=== PATIENT | male | born 1950 | race Caucasian/White ===

== ENCOUNTER → 2025-01-04 11:59 | Outpatient (REF) | payer OTHER, SELFPAY | LOC: HWRCS 11:59 | PROVIDERS: ATTENDING PHYSICIAN Internal Medicine Cardiovascular Disease | DX: R06.02 Shortness of breath (principal) | CPT/HCPCS: 78452; 93017; A9500; J2785 ==

== ENCOUNTER → 2025-01-14 13:00 | Outpatient (REF) | payer OTHER, SELFPAY | LOC: HWRCS 13:00 | PROVIDERS: ATTENDING PHYSICIAN Internal Medicine Cardiovascular Disease | DX: I77.810 Thoracic aortic ectasia (principal) | CPT/HCPCS: 93306 ==

== ENCOUNTER → 2025-01-26 12:31 | Outpatient (REF) | payer OTHER, SELFPAY ==
[2025-01-26 13:09] LABS: Hematocrit 42.5 % (39.0-52.0); Hemoglobin 14.7 g/dL (13.0-18.0); Mean Corp Hgb Conc. 34.6 g/dL (33.0-37.0); Mean Corpuscular Volume 90.6 fL (80.0-94.0); Nucleated Red Blood Cells % 0 % (-); Platelet Count 211 10^3/uL (130-400); Red Cell Dist. Width 12.7 % (11.5-14.5)
[2025-01-26 15:51] LABS: Blood Urea Nitrogen 30 mg/dl (9-20); Calcium 9.6 mg/dl (8.4-10.2); Carbon Dioxide 28 mmol/L (22-30); Chloride 102 mmol/L (98-107); Glucose 101 mg/dl (70-99); Potassium 4.2 mmol/L (3.5-5.1); Sodium 137 mmol/L (135-145); eGFR 44.65
== END ==
LOC: RCS 12:31
PROVIDERS: ATTENDING PHYSICIAN Orthopaedic Surgery; FAMILY PHYSICIAN Student in an Organized Health Care Education/Training Program
DX: Z01.818 Encounter for other preprocedural examination (principal)
CPT/HCPCS: 36415; 80048; 85025; 93005

== ENCOUNTER 2025-02-07 23:06 | Observation (INO) | payer OTHER, SELFPAY ==
[2025-02-07] VITALS (11 sets, daily range): BP systolic 142–213; BP diastolic 74–118
[2025-02-07 19:28] LABS: Hematocrit 40.9 % (39.0-52.0); Hemoglobin 14.4 g/dL (13.0-18.0); Mean Corp Hgb Conc. 35.2 g/dL (33.0-37.0); Mean Corpuscular Volume 86.8 fL (80.0-94.0); Nucleated Red Blood Cells % 0 % (-); Platelet Count 204 10^3/uL (130-400); Red Cell Dist. Width 12.6 % (11.5-14.5)
--- NOTE | 2025-02-07 19:29 | ED.CVA ---
History of Present Illness
General
Chief Complaint: CVA/TIA Symptoms
Source: patient and ambulance crew
Time Seen by Provider: 02/07/25 19:27
Onset of Stroke Symptoms
Onset of symptoms known: Yes
Date of onset of symptoms: 02/07/25
Time of onset of symptoms: 18:30
History of Present Illness
History of Present Illness:
74-year-old male presents to the emergency room by ambulance due to right-sided paresthesias. Patient states that he had a onset of paresthesias while he was sitting eating dinner. He got up to try to 'walk it off'. Symptoms lasted for about 10
minutes and then quickly resolved. He denies associated weakness, difficulty speaking, word finding issues. He did have a headache which started shortly after paresthesias. This headache has improved significantly and is almost gone at this
point. Patient was found to be hypertensive by medics at was hypertensive on arrival. Patient states he does not take medication for high blood pressure. He has had high measurements when in doctors offices but after they let him rest for a
little while the blood pressure typically normalizes. Patient had surgery of his left hand to repair a fracture. He had been taking Eliquis due to A-fib. He had stopped the Eliquis about a week ago. He does not believe he has been in A-fib at
all recently.
Phy Exam
Physical Exam
Physical Exam:
General: Awake, Alert, Oriented X3. No acute distress.
Vitals: Hypertensive
Head: Atraumatic
Eyes: Pupils equal, EOMI
Throat: Airway intact, no exudates
Neck: Trachea midline
Lungs: Clear and equal b/l
Heart: Regular rate, no murmurs
Neuro: Cranial nerves intact, muscle strength equal bilaterally, cerebellar exam normal
Skin: Warm, dry, no rash
Extremities: pulses equal b/l, no edema. Cast in place left forearm/hand.
NIH Stroke Score
Level of Consciousness: 0 - Alert
LOC questions: 0-Answers both correctly
LOC Commands: 0-Performs both correctly
Best Gaze: 0-Normal
Visual Segura: 0=Normal, no visual loss
Facial palsy: 0=Normal, symmetrical
Motor - Right Arm: 0=No drift 10 seconds
Motor - Left Arm: 0=No drift 10 seconds
Motor - Right Le-No drift 5 seconds
Motor - Left Le-No drift 5 seconds
Limb Ataxia: 0-Absent
Sensation: 0-Normal
Best Language: 0-No aphasia
Dysarthria: 0-Normal
Extinction and Inattention: 0-No abnormality
Total Score:: 0
Course
Orders/Labs/Results
Orders:
Orders
02/07/25 19:18
Basic Metabolic Panel Urgent
Complete Blood Count/With Diff Urgent
02/07/25 19:19
EKG [Electrocardiogram (*1)] Urgent
Reason for Study: Fatigue / Weakness
EKG- Treatment ONCE
02/07/25 19:28
CT Head W/o Iv Contrast Urgent
Comment:
Reason For Exam: headache, r sided paresthesia
02/07/25 22:37
Aspirin Chewable [Low Strength Aspirin] 324 mg PO NOW STA
02/07/25 22:56
Admit/Transfer Patient As Directed
Co-Sign Provider:
Level of Care: Observation services
Assign to:: Telemetry
Physician / Group: John
Diagnosis: CVA / TIA
Reason for Telemetry: CVA/TIA
Date to Stop Telemetry: 02/10/25
Time to Stop Telemetry: 11:00
PRN Pain Medication Management As Directed
May give lesser potent ordered pain med per pt: Yes
preference::
Protocol:: Medication orders for pain may be administered in a
manner that supports deferring to patient preference
when the pt is:
- Requesting an ordered lesser potent pain medication.
Least to most potent pain medications are defined
as: acetaminophen < NSAID < tramadol < opioids
(morphine, oxycodone, hydromorphone).
- Requesting a lesser dose of the same medication IF
ORDERED.
- Requesting a less intrusive route of administration
if both routes are prescribed by the provider (PO <
IV).
02/07/25 22:57
Code Status As Directed
Resuscitation Status: Full Code
02/10/25 11:00
DC Protocol for Telemetry ONCE
Abnormal Lab Results
02/07/25
19:18
MPV 10.6 H fL
(7.4-10.4)
Absolute Monos (auto) 0.7 H 10^3/uL
(0.1-0.6)
Monocytes % 10.3 H %
(1.7-9.3)
BUN 22 H mg/dl
(9-20)
Creatinine 1.5 H mg/dL
(0.7-1.3)
02/07/25 19:18
02/07/25 19:18
Vital Signs
Initial and Last Documented VS:
Initial Vital Signs
Temp Pulse Resp BP Pulse Ox
98.3 F 74 14 213/112 96
02/07/25 19:18 02/07/25 19:18 02/07/25 19:18 02/07/25 19:18 02/07/25 19:18
Last Documented Vital Signs
Temp Pulse Resp BP Pulse Ox
98.3 F 56 11 169/79 92
02/07/25 19:18 02/07/25 22:15 02/07/25 22:15 02/07/25 22:15 02/07/25 22:15
MDM/Problems Addressed
Differential Diagnosis Includes:
TIA, CVA, seizure
MDM/Problems Addressed:
Patient presents with right sided paresthesias that have resolved. CT shows no acute abnormality. Patient was quite hypertensive on arrival but his blood pressure has moderated. Suspect TIA. 4 baby aspirin given. Will admit for further stroke
workup.
*Radiology
Radiology exam reviewed: radiology read reviewed
*Pulse Oximetry
SaO2: 97
Oxygen Mode of Delivery: Room air
Patient hypoxic: no
*EKG
Interpreted by ED Provider?: Yes
Heart Rate: 82
Rate: normal
Rhythm: sinus
[place]: normal axis
Interval: normal interval
QRS Pattern: normal QRS
Ischemia: non-specific ST changes
*Avionics System Engineer Interpretation
Rate: normal
Interpretation: normal
Rhythm: sinus
*Critical Care Note
Total Time (30-74mins, 75-104mins- exclusive of procedures): Not Applicable
ED Attending Note
-
Portions of this chart may have been created with voice recognition software.� Occasional wrong word or��sound alike� substitutions may have occurred due to the inherent limitations of voice recognition software.
Discharge Plan
Departure
Patient Disposition: Admit
Date of Disposition: 02/07/25
Time of Disposition: 22:26
Admit to: Telemetry
Presentation/result/management discussed w/ accepting MD/DO: Hospitalist
Condition: Fair
Discharge Problem:
Brain TIA
Interventions
Interventions:
*General Assessment Last Done: 02/07/25 19:24
*Neglect/Abuse Screening Last Done: 02/07/25 19:16
*ED COVID-19 Vaccine History Last Done: 02/07/25 19:24
*ED Influenza Vaccine History Last Done: 02/07/25 19:24
[facility] Fall Risk Assessment Tool Last Done: 02/07/25 19:23
*Risk Screen - Suicide (C-SSRS) Last Done: 02/07/25 19:16
ED- Cardiac Assessment Last Done: 02/07/25 19:20
ED- Neurological Assessment Last Done: 02/07/25 19:20
ED- Pulmonary Assessment Last Done: 02/07/25 19:20
ED Swallowing Screen Last Done: 02/07/25 19:30
[2025-02-07 19:52] LABS: Blood Urea Nitrogen 22 mg/dl (9-20); Calcium 9.3 mg/dl (8.4-10.2); Carbon Dioxide 23 mmol/L (22-30); Chloride 105 mmol/L (98-107); Glucose 98 mg/dl (70-99); Sodium 135 mmol/L (135-145); eGFR 48.25
[2025-02-07] MEDS: LOW STRENGTH ASPIRIN 324 MG PO (22:40)
--- NOTE | 2025-02-07 23:05 | HPS.HSE ---
Family Physician
-
Family Physician: Tom Nelson MD
Chief Complaint
-
Right sided numbness
History of Present Illness
Patient is a 74y M with PMH significant for paroxysmal A-Fib who presents to ED complaining of numbness and tingling of the R side that started this evening. Patient states that symptoms started around 6:30PM. He noted a tingling sensation in
his R arm and leg. He stood to 'walk it off' and felt somewhat lightheaded. He did not fall. He denies any headache or vision change. He denies any weakness of the limbs or unsteady gait.
Patient called 911 and presented to the ED for evaluation.
In the ED, patient complains of a 'heaviness' all over. He denies any other current / focal symptoms.
He denies any prior h/o CVA / TIA.
Patient recently underwent ORIF of the L hand (02/02). He held his Eliquis starting Friday (last dose Tuesday 01/30). He had planned to resume this after surgery, but went home with friends instead of to his home and did not have his medications.
Medical History
Past Medical History
Past Medical History: Reports Other
Additional Past Medical History:
Paroxysmal Atrial Fibrillation
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
BPH
CKD III
Past Surgical History: Reports Other
Additional Past Surgical History:
T&A
Cervical LN Excision
PVI Ablation x 2
DCCV (most recent July 2024)
TURP
Social History
Tobacco: Non-smoker
Alcohol: Occasional
Drug: None
Family History
Family History: Not pertinent
Allergies / Home Medications
Allergies reflects when Allergies were last updated in [employer].
Home Medications with original date entered in [employer]
Allergy/Medication List:
Allergies
Allergy/AdvReac Type Severity Reaction Status Date / Time
No Known Allergies Allergy Verified 02/07/25 19:16
Home Medications
apixaban 5 mg tablet (Eliquis) 5 mg PO BID 02/07/25
Review of Systems
-
History Source: Patient
A 12 point ROS was completed and negative except as noted: Yes
Constitutional: Reports Fatigue; Denies Fever or Chills
Respiratory: Denies Cough or Trouble Breathing
Cardiac: Denies Chest Pain or Palpitations
Abdomen/GI: Denies Abdominal Pain, Nausea, Vomiting or Diarrhea
: Denies Dysuria or Frequency
Musculoskeletal: Denies Joint Pain or Edema
Neurological: Reports Dizzy and Numbness; Denies Headache or Weakness
Psych: Denies Depression or Anxiety
Physical Exam
Vital Signs
Vital Signs
Temp Pulse Resp BP Pulse Ox
98.3 F 56 11 169/79 92
02/07/25 19:18 02/07/25 22:15 02/07/25 22:15 02/07/25 22:15 02/07/25 22:15
Physical Exam
General: Other (74y M in no acute distress.)
HEENT: Moist mucous membranes and PERRLA
Respiratory: Clear; No Wheezes, Rales or Rhonchi
Cardiac: S1/S2 and Regular Rhythm; No Murmur
GI: Soft, Non Tender, Non Distended and Normal Bowel Sounds
Musculoskeletal: No Clubbing, No Cyanosis, No Edema and Other (L forearm / hand in bulky dressing / cast.)
Neuro: AO x 3 and Nonfocal/grossly intact
Laboratory Results
-
02/07/25 19:18
02/07/25 19:18
Laboratory Results
Total Bilirubin Cancelled 02/07/25 19:18
AST Cancelled 02/07/25 19:18
ALT Cancelled 02/07/25 19:18
Alkaline Phosphatase Cancelled 02/07/25 19:18
Impression/Plan
-
A/P: Patient is a 74y M with PMH significant for A-Fib who presents to ED complaining of R sided paresthesias that started this evening.
CVA / TIA
- Observe overnight for further evaluation and treatment.
- NIH = [address] head unremarkable.
- BP elevated in the ED - allow permissive hypertension for now.
- Follow neurologic exam for any changes / recurrent symptoms.
- MRI in AM.
- Neuro evaluation.
- PT / OT evaluations.
- Check lipid panel, A1C, etc.
- ASA daily and continue / resume Eliquis.
- Follow BP and add antihypertensive medication if needed for goal of normotension at discharge.
- Had Echo (01/14) which was unremarkable.
Paroxysmal Atrial Fibrillation
- In NSR at present. Monitor on telemetry overnight.
- s/p PVI x 2 and multiple DCCV (most recent July 2024).
- Resume Eliquis as noted above (off for the past week due to surgery).
Left Hand Fracture
- s/p ORIF on 02/02.
- Cast in place.
- Follow-up with Ortho as planned.
BPH
- Bladder scan protocol.
DVT Prophylaxis: On Eliquis
Code Status: Full
[2025-02-08] VITALS (13 sets, daily range): BP systolic 122–203; BP diastolic 59–106; PULSE 57–64; O2SAT 96; BMI 28.6
[2025-02-08 07:00] LABS: Blood Urea Nitrogen 20 mg/dl (9-20); Calcium 9.1 mg/dl (8.4-10.2); Carbon Dioxide 22 mmol/L (22-30); Chloride 108 mmol/L (98-107); Glucose 104 mg/dl (70-99); HDL Cholesterol 40 mg/dl; LDL Cholesterol, Calculated 122 mg/dl; Potassium 4.0 mmol/L (3.5-5.1); Sodium 136 mmol/L (135-145); Very Low Density Lipoprotein 12 mg/dl (0-30); eGFR 52.41
[2025-02-08 07:02] LABS: Hematocrit 38.5 % (39.0-52.0); Hemoglobin 13.5 g/dL (13.0-18.0); Mean Corp Hgb Conc. 35.1 g/dL (33.0-37.0); Mean Corpuscular Volume 87.5 fL (80.0-94.0); Platelet Count 191 10^3/uL (130-400); Red Cell Dist. Width 12.6 % (11.5-14.5)
--- NOTE | 2025-02-08 08:05 | CON.NEURO ---
Addendum entered and electronically signed by Sanford Castaneda MD 02/08/25 12:58:
Studies reviewed.
I have personally examined the patient. I reviewed and agree with the DISCOVERY MANAGER's Note.
My addenda:
Awake, alert, interactive. No acute distress.
Speech intact.
Follows 2-step requests w/o difficulty. No tremor.
Extra-ocular movements grossly intact.
Facial movements full and symmetric. Hearing intact to normal conversational volume.
Normal UE movements bilaterally.
Neck: full ROM.
Chest: no dyspnea
Heart: no JVD
Ext: (-) Clubbing, (-) Cyanosis, (-) Edema
IMPRESSIONS/RECOMMENDATIONS:
Abrupt onset of right sided hemibody changes which is most likely secondary to hypertensive encephalopathy. Differential diagnosis includes TIA or metabolic disturbance. Distant possibility is migraine with aura
Check CTA head and neck to determine if there is critical stenosis producing symptoms
Goal of normotension
Continue apixaban
Start atorvastatin 80 mg due to LDL greater than 70
Rehabilitation evaluations and treatment
D/W patient
All questions answered.
Will continue to follow pending results.
Original Note:
Documented by User: Korin Lopez NP 02/08/25 10:18
Neuro Assessment/Plan
Assessment
Patient is a 74 year old male with past medical history significant for paroxysmal A-Fib on Eliquis who presents to [facility] on 02/07/2025 complaining of right sided sensory changes.
Labs: LDL 122, hgb A1C 5.5, CRP<5, TSH 2.[address] 02/07/2025: No evidence of acute intracranial abnormality.
Head/neck CTA 02/08/2025: pending
Plan
Impression: abrupt onset of right sided sensory changes, differentials include TIA/CVA vs hypertension encephalopathy considering BP profoundly elevated vs migraine
-check MRI brain without contrast to evaluate for stroke
-goal normotension
-continue Eliquis
-goal LDL <70, current LDL 122 start atorvastatin 80 mg nightly
-PT/OT/ST evaluations
-continue neurochecks and NIHSS per unit guidelines
-stroke education packet
All questions encouraged and answered, plan of care discussed with Dr. Castaneda and patient
Consultation
Order
Date of Consultation: 02/08/25
Requesting Provider: hospitalist/ Dr. Parvez Lopez
Reason for Consult: right sided sensation changes
Subjective/Objective
Subjective Data
Date of Service: February 08, 2025
Patient is a 74 year old male with past medical history significant for paroxysmal A-Fib on Eliquis who presents to [facility] on 02/07/2025 complaining of right sided sensory changes. Patient states that symptoms started around 6:30PM. He noted a
tingling sensation in his right arm and leg. He stood to 'walk it off' and felt somewhat lightheaded. He did not fall. He denies any issues with vision, speech or swallow. He denies any weakness of the limbs or unsteady gait. Patient called 911
and presented to the ED for evaluation. In the ED, patient complained of a 'heaviness' all over and transient headache in the right presybeterian. He denies any other focal symptoms. He denies any prior h/o CVA / TIA. Denies recent travel. Patient
recently underwent ORIF of the left hand on Friday (02/02). He states he fractured his hand while carrying a laundry basket down the stairs and fell. He held his Eliquis starting Friday, 8 days ago (last dose Tuesday 01/30). He had planned to
resume this after surgery, but went home with friends instead of to his home and did not have his medications. In ED NIHSS 0 and therefore not a TNK candidate. Head CT showed no evidence of acute intracranial abnormality. Blood pressure was 213/112.
Objective Data
Vital Signs
Temp Pulse Resp BP Pulse Ox
97.9 F 54 16 174/92 92
02/08/25 06:30 02/08/25 02:30 02/08/25 02:30 02/08/25 01:06 02/08/25 02:30
Lab Results
02/08/25 06:31
02/08/25 06:31
Sodium 136 mmol/L (135-145) 02/08/25 06:31
Potassium 4.0 mmol/L (3.5-5.1) 02/08/25 06:31
BUN 20 mg/dl (9-20) 02/08/25 06:31
Glucose 104 mg/dl (70-99) H 02/08/25 06:31
Calcium 9.1 mg/dl (8.4-10.2) 02/08/25 06:31
LDL Cholesterol, Calc 122 mg/dl 02/08/25 06:31
Patient Allergies
No Known Allergies Allergy (Verified 02/07/25 19:16)
CVA Assessment
Onset of Stroke Symptoms
Onset of symptoms known: Yes
Date of onset of symptoms: 02/07/25
Time of onset of symptoms: 18:30
Time pt last seen normal is known: No
Date last time pt seen normal: 02/07/25
Time last time pt seen normal: 18:30
NIH Stroke Score
Level of Consciousness: 0 - Alert
LOC Questions: 0-Answers both correctly
LOC Commands: 0-Performs both correctly
Best Horizontal Gaze: 0-Normal
Visual Segura: 0=Normal, no visual loss
Facial Palsy: 0=Normal, symmetrical
Motor - Right Arm: 0=No drift 10 seconds
Motor - Left Arm: 0=No drift 10 seconds
Motor - Right Le-No drift 5 seconds
Motor - Left Le-No drift 5 seconds
Limb Ataxia: 0-Absent
Sensation: 0-Normal
Best Language: 0-No aphasia
Dysarthria: 0-Normal
Extinction and Inattention: 0-No abnormality
NIH Total Score:: 0
Tenecteplase Contraindications
Inclusion and Exclusion criteria reviewed: Yes
IAT Contraindications: NIHSS < 6
Modified Laurens Score (MRS)
-
Modified [place]rens Scale (mRS): No symptoms
Score: 0
Physical Exam
-
General: Comfortable and Appears Stated Age
HEENT: Normocephalic, Atraumatic and Anicteric
Neck: Full Range of Motion
Respiratory: No Dyspnea
Cardiac: No JVD
GI: Non-distended
Skin: Unremarkable
Extremities: No Clubbing, No Cyanosis, No Edema and Other (cast to LUE)
Psych: Unremarkable
Extended Neurological Exam
Mood & Affect: Mood Unremarkable
Attention Span & Concentration: Awake, Alert, Interactive and No Difficulty with 2 Step Request
Memory: Unremarkable
Involuntary Movement: None
Speech: Quality Unremarkable, Quantity Unremarkable and Rate of Production Unremarkable
Cranial Nerve II: Left Eye: Visual Segura Intact
Cranial Nerve II: Right Eye: Visual Segura Intact
Cranial Nerves III, IV, : Extraocular Movement: Extraocular Movement Full in all Directions
Cranial Nerve VII: Facial Symmetry: Normal Facial Symmetry
Cranial Nerve VIII: Hearing: Unremarkable Hearing to Normal Conversational Volume
Muscle Strength, Overall: Full Throughout
Pronator Drift: No Drift in Upper Extremities and No Drift in Lower Extremities
Coordination: Pwrxch-[id number]-[id number] Testing Unremarkable
Data Reviewed
-
CT-A: Ordered
CT Head: Report Reviewed and Image Reviewed
MRI Head: Ordered
Medical Test Reports: Report Reviewed
Labs: Report Reviewed
Lipid Profile: Report Reviewed
HgbA1C: Report Reviewed
Reviewed with: Physician and Patient
Old Records: Summarized
Medications
-
Active Medications
Generic Name Dose Route Start Last Admin
Trade Name Freq PRN Reason Stop Dose Admin
Acetaminophen 650 mg 02/08/25 00:32
Acetaminophen 325 Mg Tablet PO 03/08/25 00:31
Q4HPRN PRN
Mild Pain / Temp > 101
Apixaban 5 mg 02/08/25 08:00
Apixaban (Eliquis) 5 Mg Tablet PO 03/08/25 07:59
BID SONALI
Aspirin 81 mg 02/08/25 08:00
Aspirin 81 Mg Chewable Tablet PO 03/08/25 07:59
DAILY SONALI
Atorvastatin Calcium 80 mg 02/08/25 18:00
Atorvastatin (Lipitor) 80 Mg Tablet PO 03/08/25 17:59
QPM SONALI
Home Medications
�Medication �Instructions �Recorded
apixaban 5 mg tablet (Eliquis) 5 mg PO BID 02/07/25
Past History
Past History
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
ED Past Surgical History: Cardiac (PVI Ablation x 2) and Urological (TURP)
Family/Social History
Tobacco: Non-smoker
Alcohol: Occasional
Drug: None

Documented by User: Sanford Castaneda MD 02/08/25 12:55
CVA Assessment
NIH Stroke Score
NIH Total Score:: 0
Modified Ger Score (MRS)
-
Score: 0
[2025-02-08] MEDS: ELIQUIS 5 MG PO (08:53)
[2025-02-08 09:06] LABS: Glycohemoglobin (HgbA1c) 5.5 % (4.0-5.9)
[2025-02-08 09:28] LABS: C-Reactive Protein < 5.00 mg/L (0.0-10.00)
[2025-02-08 09:33] LABS: Troponin I < 0.012 ng/ml
[2025-02-08 10:03] LABS: Ferritin 47.7 ng/ml (17.9-464.0)
--- NOTE | 2025-02-08 10:06 | PTOTSP ---
Patient demonstrates safe and independent mobility, no skilled physical therapy needs at this time.
[2025-02-08 10:35] LABS: Folate > 20.0 ng/ml (2.76-20); Vitamin B12 940 pg/ml (239-931)
--- NOTE | 2025-02-08 10:36 | W.PN.HOSP.TC ---
Addendum entered and electronically signed by Matt Henderson MD 02/08/25 15:33:
[id number]
Addendum entered and electronically signed by Matt Henderson MD 02/08/25 12:10:
Unable to obtain MRI due to metal plate. Neurology cleared patient despite not having MRI imaging. Follow-up neurology outpatient. Continue statin. Continue Eliquis
Blood pressures improved with change of cuff, although slightly hypertensive still. No symptoms. Added enalapril 5 mg daily. Follow-up nephrology, PCP, cardiology
Follow-up BMP outpatient
Original Note:
Today's Communication/Plan
-
Statin
BP control
F/u PCP, Neurology, Cardiology, Nephrology outpatient
F/u labs in 5-7 days
Assessment / Plan
Assessment / Plan
Physical Exam
General: Other (74y M in no acute distress.)
HEENT: Moist mucous membranes and PERRLA
Respiratory: Clear; No Wheezes, Rales or Rhonchi
Cardiac: S1/S2 and Regular Rhythm; No Murmur
GI: Soft, Non Tender, Non Distended and Normal Bowel Sounds
Musculoskeletal: No Clubbing, No Cyanosis, No Edema and Other (L forearm / hand in bulky dressing / cast.)
Neuro: AO x 3 and Nonfocal/grossly intact
A/P: Patient is a 74y M with PMH significant for A-Fib who presents to ED complaining of R sided paresthesias that started this evening.
Right sided paresthesias
� Possible TIA/CVA versus hypertension encephalopathy versus migraine
� Obtain MRI brain
� Goal normotension once confirmed no CVA
� Add hydralazine with parameters to ensure blood pressure > 180/110
� LDL 122, start atorvastatin 80 mg nightly
� PT/OT/ST
� Follow-up neurology outpatient
- Had Echo (01/14) which was unremarkable.
Essential hypertension
� Add lisinopril 10 mg daily, titrate up as needed
� Add amlodipine if needed
� Hydralazine as needed
EKG changes
� Nonspecific T wave inversions, ST T wave abnormalities
� No chest pain, troponin negative
� Stress Test 01/04/25 - The Stress ECG is Negative for Ischemia. Arrhythmia: No significant arrhythmias noted. No regional wall motion abnormalities on echo within 30 days
- F/u PCP outpt
Hyperlipidemia
� Start atorvastatin 80 mg nightly
CKD 3a
� Most likely secondary to hypertension, hemoglobin A1c 5.5
� Follow-up nephrology outpatient
� Add lisinopril for renal protective reasons in patient with CKD and hypertension
Paroxysmal Atrial Fibrillation
- In NSR at present. Monitor on telemetry overnight.
- s/p PVI x 2 and multiple DCCV (most recent July 2024).
- Resume Eliquis as noted above (off for the past week due to surgery).
Left Hand Fracture
- s/p ORIF on 02/02.
- Cast in place.
- Follow-up with Ortho as planned.
BPH
- Bladder scan protocol.
DVT Prophylaxis: On Eliquis
Code Status: Full
More than 30 minutes spent in discharge including
Final examination of the patient
Summarizing hospital stay
Instructions for continuing care to all relevant caregivers
Preparation of discharge records, prescriptions, and referral forms
Total time spent (in minutes): 36
Anticipated Discharge: Today
Subjective/Interval History
-
Date of Service: February 08, 2025
Persistently hypertensive
Objective Data
-
Labs:
Laboratory Results
02/08/25
06:31
WBC 4.5 L
Hgb 13.5
Hct 38.5 L
Plt Count 191
Sodium 136
Potassium 4.0
Chloride 108 H
Carbon Dioxide 22
BUN 20
Creatinine 1.4 H
Glucose 104 H
Calcium 9.1
Vital Signs:
Vital Signs
Temp Pulse Resp BP Pulse Ox
97.9 F 62 11 197/95 96
02/08/25 06:30 02/08/25 10:22 02/08/25 10:22 02/08/25 10:22 02/08/25 10:22
Review of Systems
-
History Source: Patient
All other systems: Not reviewed unless documented
Data Reviewed
-
CT Scan: Report Reviewed by me
Labs: Labs Reviewed by me
--- NOTE | 2025-02-08 11:11 | EDCM ---
Reviewed chart and met with pt bedside in ED. Lives alone in 2 story home with basement.
He is moving soon to a condo in [place], [place], son lives in [place]. Does not have any local family.
Independent in ADLs, personal care and ambulation at baseline. Currently has a cast on L arm from recent fracture with surgical repair on 02/02.
PMH includes Afib, Tongue cancer, BPH and CKD.
WALLACE reviewed and signed, pt declined copy.
Confirms prescription coverage.
No hx HH or SNF
PCP: Tom Nelson
Pharmacy: [facility] [address] [place]
Anticipate discharge home, CM will continue to follow for all discharge planning needs.
--- NOTE | 2025-02-08 12:10 | W.DS.TRANS ---
DC Summary - Rn Allergy
-
Discharge Instructions:
Discharge Diagnosis/Procedures TIA/CVA vs hypertension encephalopathy vs
migraine
Diet Low Fat,Low Cholesterol
Activity As tolerated
Blood Work cbc and cmp in 1 week with pcp
Others Tests as per neurology outpatient
Instructions:
Stand-Alone Forms:
Changes to Home Medications: Yes
Discharge Medications:
DC Medications w/original date entered in [facility] [facility]
apixaban 5 mg tablet (Eliquis) 5 mg PO BID 02/07/25
Ashwagandha 1 tab PO DAILY 02/08/25
Beef Broth Protein Powder 12 g PO DAILY 02/08/25
Black Seed Oil 1 tab PO DAILY 02/08/25
Nitric Oxide Supplement 2 tab PO DAILY 02/08/25
Zeolite Drops 10 drp PO BID 02/08/25
atorvastatin 80 mg tablet 80 mg PO QPM 30 days #30 tabs 02/08/25
coenzyme Q10 100 mg capsule 100 mg PO DAILY 02/08/25
enalapril maleate 5 mg tablet 5 mg PO DAILY #30 tabs 02/08/25
hydrocodone 5 mg-acetaminophen 325 mg tablet 1 tab PO Q6HPRN PRN mild pain 02/08/25
therapeutic multivitamin 1 tab PO DAILY 02/08/25
turmeric root extract 500 mg capsule 1,000 mg PO DAILY 02/08/25
Home Medication Changes
atorvastatin 80 mg tablet 80 mg PO QPM 30 days #30 tabs 02/08/25
enalapril maleate 5 mg tablet 5 mg PO DAILY #30 tabs 02/08/25
Pending Results: No
== END 2025-02-08 12:41 | disposition home or self-care (01) ==
LOC: ED 23:06
PROVIDERS: ADMITTING PHYSICIAN Hospitalist; ATTENDING PHYSICIAN Internal Medicine; CONSULT PHYSICIAN Psychiatry & Neurology Neurology; EMERGENCY PHYSICIAN Emergency Medicine; FAMILY PHYSICIAN Student in an Organized Health Care Education/Training Program
DX: R20.2 Paresthesia of skin (principal); I48.0 Paroxysmal atrial fibrillation; N40.0 Benign prostatic hyperplasia without lower urinary tract symptoms; N18.31 Chronic kidney disease, stage 3a; I12.9 Hypertensive chronic kidney disease with stage 1 through stage 4 chronic kidney disease, or unspecified chronic kidney disease; E78.5 Hyperlipidemia, unspecified; Z79.01 Long term (current) use of anticoagulants; Z85.818 Personal history of malignant neoplasm of other sites of lip, oral cavity, and pharynx; Z92.21 Personal history of antineoplastic chemotherapy; Z92.3 Personal history of irradiation
CPT/HCPCS: 70450; 70496; 70498; 80048; 80061; 82607; 82728; 82746; 83036; 84443; 84484; 85025; 85027; 85652; 86140; 93005; 99285; G0378; Q9967